=== PATIENT | male | born 1995 | race Caucasian/White ===

== ENCOUNTER → 2017-03-18 | Emergency (ER) | payer MEDICAID ==
[~2017-03-18] VITALS: Ht 175.3 cm; Wt 85.9 kg
[~2017-03-18] MED LIST: DIPH-423 PO; HYDR-569 PO; LIDO20SO16 PO; NAPR-1154 PO; PANT20TA2 PO; PRED20TA PO; acetaminophen 325mg tablet PO ONE; clotrimazole topical cream 15gm tube TP ONE; clotrimazole topical cream 15gm tube TP SCH
[2017-03-18 19:54] LABS: BASOPHILS % (AUTO) 0.6 % (0-1); EOSINOPHILS % (AUTO) 0.2 % (0-6); HEMATOCRIT 50.9 % (42.0-52.0); LYMPHOCYTES # (AUTO) 1.2 X10'3 (1.1-4.8); LYMPHOCYTES % (AUTO) 15.9 % (21-51); MEAN CORPUSCULAR HEMOGLOBIN 29.3 PG (27.0-31.0); MEAN CORPUSCULAR HGB CONC 33.4 % (33.0-36.5); MEAN CORPUSCULAR VOLUME 87.8 FL (78-98); MEAN PLATELET VOLUME 9.1 FL (7.4-10.4); MONOCYTES # (AUTO) 1.2 X10'3 (0-0.9); MONOCYTES % (AUTO) 17.1 % (2-12); NEUTROPHILS # (AUTO) 4.8 X10'3 (1.8-7.7); NEUTROPHILS % (AUTO) 66.2 % (42-75); PLATELET COUNT 258 X10'3 (140-440); RED CELL DISTRIBUTION WIDTH 13.2 % (11.5-14.5); WHITE BLOOD COUNT 7.3 X10'3 (4.5-11.0)
[2017-03-18 20:07] LABS: INR 1.1 INR; PARTIAL THROMBOPLASTIN TIME 28 SECONDS (22-32); PROTHROMBIN TIME 11.3 SECONDS (9.0-12.0)
[2017-03-18 20:13] LABS: ALANINE AMINOTRANSFERASE 27 U/L (12-78); ALBUMIN 3.8 G/DL (3.4-5.0); ALBUMIN/GLOBULIN RATIO 1.1 (1.1-1.5); ALKALINE PHOSPHATASE 73 IU/L (46-116); ANION GAP 10 (8-16); ASPARTATE AMINO TRANSFERASE 18 U/L (10-37); BILIRUBIN,TOTAL 0.4 MG/DL (0.1-1.0); BLOOD UREA NITROGEN 9 MG/DL (7-18); CHLORIDE 100 MMOL/L (99-107); CREATININE 1.28 MG/DL (0.60-1.10); GLUCOSE 101 MG/DL (70-104); POTASSIUM 3.8 MMOL/L (3.5-5.1); SODIUM 138 MMOL/L (135-145); TOTAL CARBON DIOXIDE 28.5 MMOL/L (24-32); TOTAL PROTEIN 7.4 G/DL (6.4-8.2); eGFR 71 ML/MIN
[2017-03-18 22:32] VITALS: BP 141/57
== END | disposition home or self-care (01) ==
LOC: ER 19:03
DX: B34.9 Viral infection, unspecified (principal); R07.89 Other chest pain; R21 Rash and other nonspecific skin eruption; F12.10 Cannabis abuse, uncomplicated; F15.10 Other stimulant abuse, uncomplicated; Z88.8 Allergy status to other drugs, medicaments and biological substances; Z79.899 Other long term (current) drug therapy
CPT/HCPCS: 36415; 71045; 80053; 84484; 85025; 85610; 85730; 87502; 87503; 93005; 99285

== ENCOUNTER 2017-03-19 11:38 | Emergency (ER) | payer MEDICAID ==
[~2017-03-19] VITALS: Ht 172.7 cm; Wt 85.3 kg
[~2017-03-19 11:38] MED LIST changes: -LIDO20SO16 PO; -PANT20TA2 PO; -acetaminophen 325mg tablet PO ONE; -clotrimazole topical cream 15gm tube TP ONE; -clotrimazole topical cream 15gm tube TP SCH
[2017-03-19] MEDS ORDERED: famotidine 10mg tablet PO STA (12:14)
[2017-03-19] MEDS ORDERED: LIDOcaine Viscous 15ml cup MM PRN (12:15)
[2017-03-19] MEDS ORDERED: mag hydrox/Alum hydrox/simeth 30ml oral suspension PO ONE (12:15)
[2017-03-19] MEDS ORDERED: famotidine 20mg tablet PO STA (12:17)
[2017-03-19 12:52] LABS: H PYLORI ANTIBODY NEGATIVE (Neg)
[2017-03-19] MEDS ORDERED: LIDO20SO16 PO (13:38)
[2017-03-19] MEDS ORDERED: PANT20TA2 PO (13:38)
[2017-03-19 14:10] VITALS: BP 133/77
== END 2017-03-19 14:12 | disposition home or self-care (01) ==
LOC: ER 11:38
DX: R07.89 Other chest pain (principal); K20.9 Esophagitis, unspecified; I10 Essential (primary) hypertension; F12.10 Cannabis abuse, uncomplicated; F15.10 Other stimulant abuse, uncomplicated; Z87.891 Personal history of nicotine dependence; Z79.899 Other long term (current) drug therapy; Z88.6 Allergy status to analgesic agent; Z88.5 Allergy status to narcotic agent
CPT/HCPCS: 36415; 71046; 86677; 93005; 99285